=== PATIENT | male | born 1970 | race Two or more races ===

== ENCOUNTER 2024-05-11 20:23 | Emergency (ER) | payer OTHER ==
[~2024-05-11] VITALS: Ht 167.6 cm; Wt 63.1 kg
--- NOTE | 2024-05-11 23:37 | ED.PDOC ---
HPI Comments This patient is a 53-year-old male who arrives the ED today for evaluation of a laceration to his right distal middle finger sustained a proximally 1/2 hour prior to arrival. Patient states he pushes hand through a glass table that broke causing the laceration. No active bleed at arrival. Patient's tetanus is up-to-date. Chief Complaint: Laceration Time Seen by MD: 22:21 Primary Care Provider: NONE Reviewed Notes: Nurses Notes Allergies: Coded Allergies: NO KNOWN ALLERGIES (Unverified , 05/11/24) Information Source: Patient Mode of Arrival: Ambulatory Severity: Mild Severity of Laceration: Controlled Bleeding Complexity: Simple Timing: Minutes Prehospital treatment: None Laceration Location: Digit #3 Mechanism: Glass Laceration Length (cm): 3 Skin Type: Flap Depth of Injury: Skin, Mucosa Tendon Injury: 0% Tender: Mild Associated Signs and Symptoms: None Past Medical History PAST MEDICAL HISTORY: Denies Surgical History: Denies all surgeries Family History Family History: Reviewed,noncontributory to illness, No family hx of Cancer, No family hx of DM, No family hx of Heart jojo, No family hx of HTN, No family hx ofKidney jojo, No family hx of Liver jojo, No family hx of Lung jojo, No family hx of Stroke Social History Smoker: Non-Smoker Alcohol: Denies ETOH Use Drugs: Denies Drug Use Lives In: Home Constitutional: denies: chills, diaphoresis, fatigue, fever, malaise, sweats, weakness, others EENTM: denies: blurred vision, double vision, ear bleeding, ear discharge, ear drainage, ear pain, ear ringing, eye pain, eye redness, hearing loss, mouth pain, mouth swelling, nasal discharge, nose bleeding, nose congestion, nose pain, photophobia, tearing, throat pain, throat swelling, voice changes, others Respiratory: denies: cough, hemoptysis, orthopnea, SOB at rest, shortness of breath, SOB with excertion, stridor, wheezing, others Cardiovascular: denies: chest pain, dizzy spells, diaphoresis, Dyspnea on exertion, edema, irregular heart beat, left arm pain, lightheadedness, palpitations, PND, syncope, others Gastrointestinal: denies: abdomen distended, abdominal pain, blood streaked bowels, constipated, diarrhea, dysphagia, difficulty swallowing, hematemesis, melena, nausea, poor appetite, poor fluid intake, rectal bleeding, rectal pain, vomiting, others Genitourinary: denies: burning, dysuria, flank pain, frequency, hematuria, incontinence, penile discharge, penile sore, pain, testicle pain, testicle swelling, urgency, others Neurological: denies: dizziness, fainting, headache, left sided numbness, left sided weakness, numbness, paresthesia, pre-existing deficit, right sided numbness, right sided weakness, seizure, speech problems, tingling, tremors, weakness, others Musculoskeletal: denies: back pain, gout, joint pain, joint swelling, muscle pain, muscle stiffness, neck pain, others Integumetry: reports: laceration (Right middle finger); denies: bruises, change in color, change in hair/nails, dryness, lesions, lumps, rash, wounds, others Allergic/Immunocompromised: denies: Difficulty Healing, Frequent Infections, Hives, Itching, others Hematologic/Lymphatic: denies: anemia, blood clots, easy bleeding, easy bruis ing, swollen glands, others Endocrine: denies: excessive hunger, excessive sweating, excessive thirst, exc essive urination, flushing, intolerance to cold, intolerance to heat, unexplained weight gain, unexplained weight loss, others Psychiatric: denies: anxiety, bipolar disorder, depression, hopeless, panic disorder, schizophrenia, sleepless, suicidal, others Physical Exam General Appearance: Mild Distress ( moderate distress due to finger laceration concerns.), Normal HEENT: Normal ENT Inspection, Pharynx Normal, TMs Normal Neck: Full Range of Motion, Non-Tender, Normal, Normal Inspection Respiratory: Chest Non-Tender, Lungs Clear, No Accessory Muscle Use, No Respiratory Distress, Normal Breath Sounds Cardiovascular: No Edema, No JVD, No Murmur, No Gallop, Normal Peripheral Pulses, Regular Rate/Rhythm Breast Exam: Deferred Gastrointestinal: No Organomegaly, Non Tender, No Pulsatile Mass, Normal Bowel Sounds, Soft Genitalia: Deferred Pelvic: Deferred Rectal: Deferred Extremities: No calf tenderness, Normal capillary refill, Normal inspection, Normal range of motion, Non-tender, No pedal edema Neurologic: Alert, No Motor Deficits, Normal Affect, Normal Mood, No Sensory Deficits Cerebellar Function: Normal Reflexes: Normal Skin: Dry, Lacerations (2 cm vertical laceration noted to the palmar side of the D IP of the right middle finger. No active bleed. No foreign bodies.), Normal Color, Warm Lymphatic: No Adenopathy Was a procedure done? Was a procedure done?: Yes Sedation Sedation?: No Other Procedure Notes Copious irrigation was performed in the wound. Dermabond and Steri-Strips were used to approximate the wound. Wound was dressed and a finger splint was placed. Patient tolerated procedure well. Differential diagnosis Generic Laceration: Laceration X-Ray, Labs, Meds, VS Vital Signs Date Time Temp Pulse Resp B/P (MAP) Pulse Ox O2 Delivery O2 Flow Rate FiO2 05/11/24 20:48 97.4 77 16 132/83 (99) 96 X-Ray, Labs, Meds, VS Comment Discussed the sequelae of Steri-Strips healing with the patient. Advise utilizing the finger splint to stave off any dehiscence of the wound. Advise utilizing antibiotics as directed until completion and pain medication as needed. Time of 1ST Reevaluation: 23:40 Reevaluation 1ST: Improved Consultation: PCP Patient Education/Counseling: Diagnosis, Treatment Family Education/Counseling: Diagnosis, Treatment Departure 1 Departure Time of Disposition: 23:40 Impression: Primary Impression: Finger laceration Disposition: HOME / SELF CARE / HOMELESS Condition: Stable Additional Instructions: Advise utilizing antibiotics as directed until completion as well as pain medication as needed. e-Prescriptions Cephalexin (KEFLEX CAPSULE) 250 Mg Cp 1 CAP PO QID for 5 Days, #20 CAP Prov: DURAN CONNORS PAC 05/11/24 Discharged With: Self, Friend Critical Care Note Critical Care Time?: No Stability Stability form required: No Heart Score Heart Score: Heart Score Response (Comments) Value History N/A 0 EKG N/A 0 Age N/A 0 Risk Factors N/A 0 Troponin N/A 0 Total 0 DURAN CONNORS PAC May 11, 2024 23:37
[2024-05-11] MEDS ORDERED: CEPH250C PO (23:41)
[2024-05-12 00:12] VITALS: RESP 22; O2SAT 98
[2024-05-12 00:14] VITALS: BP 152/104; PULSE 76; TEMP 98.3; O2SAT 98
== END 2024-05-12 00:18 | disposition home or self-care (01) ==
LOC: ER 20:23
DX: S61.212A Laceration without foreign body of right middle finger without damage to nail, initial encounter (principal); W25.XXXA Contact with sharp glass, initial encounter; Y93.89 Activity, other specified; Y92.89 Other specified places as the place of occurrence of the external cause; Y99.8 Other external cause status
CPT/HCPCS: 12001